=== PATIENT | female | born 1960 | race Hispanic/Latino ===

== ENCOUNTER → 2018-09-16 | Outpatient (CLI) | payer MEDICARE | END | disposition home or self-care (01) | LOC: RAH 14:35 | PROVIDERS: ATTEND Family Medicine | DX: Z12.31 Encounter for screening mammogram for malignant neoplasm of breast (principal) | CPT/HCPCS: 77067 ==

== ENCOUNTER → 2020-05-02 | Outpatient (CLI) | payer MEDICARE | END | disposition home or self-care (01) | LOC: RAH 10:02 | PROVIDERS: ATTEND Family Medicine | DX: R92.2 Inconclusive mammogram (principal); N64.4 Mastodynia; R92.8 Other abnormal and inconclusive findings on diagnostic imaging of breast | CPT/HCPCS: 77066 ==

== ENCOUNTER 2021-10-22 03:46 | Observation (INO) | payer MEDICARE ==
[~2021-10-22] VITALS: Ht 162.6 cm; Wt 92.3 kg
[2021-10-22 04:15] LABS: BASOPHILS % (AUTO) 0.6 % (0.0-5.0); EOSINOPHILS % (AUTO) 1.5 % (0.0-8.0); HEMATOCRIT 51.4 % (36-48); LYMPHOCYTES % (AUTO) 30.6 % (21.0-51.0); MEAN CORPUSCULAR HEMOGLOBIN 30.9 pg (27.0-33.0); MEAN CORPUSCULAR HGB CONC 31.5 g/dL (32.0-36.0); MEAN CORPUSCULAR VOLUME 97.9 fL (79-99); NEUTROPHILS % (AUTO) 58.1 % (40.0-77.0); PLATELET COUNT (AUTO) 185 K/uL (130-400); RED BLOOD CELL COUNT(AUTO) 5.25 MIL/uL (4.00-5.50); RED CELL DISTRIBUTION WIDTH 13.2 % (11.0-15.5); WHITE BLOOD COUNT (AUTO) 8.7 K/uL (4.8-10.8)
[2021-10-22 04:17] LABS: CREATININE 0.8 mg/dL (0.5-1.5); POTASSIUM 3.6 mmol/L (3.5-5.1)
[2021-10-22 04:22] LABS: ALBUMIN 3.8 g/dL (3.5-5.0); BILIRUBIN,TOTAL 0.6 mg/dL (0.2-1.0); TOTAL PROTEIN, SERUM 8.2 g/dL (6.0-8.3)
[2021-10-22] MEDS ORDERED: 0.9%NACL 1000ML 1,000 ML IV ONE (05:30)
[2021-10-22 05:57] LABS: APPEARANCE,URINE Clear (CLEAR); BILIRUBIN,URINE Negative (NEGATIVE); COLOR,URINE Yellow (YELLOW); GLUCOSE, URINE (UA) >=1000 mg/dL (NEGATIVE); KETONES,URINE 15 mg/dL (NEGATIVE); LEUKOCYTE ESTERASE ,URINE Negative (NEGATIVE); NITRATE,URINE Negative (NEGATIVE); OCCULT BLOOD,URINE Negative (NEGATIVE); PH,URINE 5.5 (5.0-8.0); PROTEIN,URINE Negative (NEGATIVE); UROBILINOGEN,URINE 0.2 mg/dL (0.2-1.0)
[2021-10-22] MEDS ORDERED: ONDANSETRON 4MG INJ IV PRN (06:00)
[2021-10-22] MEDS ORDERED: ACETAMINOPHEN 325 MG TAB PO PRN (06:00)
[2021-10-22 06:03] LABS: BACTERIA,URINE None Seen /HPF (None Seen); RBC,URINE None Seen /HPF (0-1); SQUAMOUS EPITHELIAL CELL,UR Few /HPF (0-2); WBC,URINE None Seen /HPF (0-1); YEAST,URINE BUDDING None Seen /HPF (None Seen)
[2021-10-22] MEDS: FAMOTIDINE 20MG TAB PO SCH (08:13)
[2021-10-22] MEDS ORDERED: 0.9%NACL 1000ML 1,000 ML IV SCH (09:30)
[2021-10-22 11:50] VITALS: BP 130/57
[2021-10-22] MEDS ORDERED: OLOP2.5D12 OP (12:30)
[2021-10-22] MEDS ORDERED: FAMO20TA8 PO (12:30)
[2021-10-22] MEDS: 0.9%NACL 1000ML 1,000 ML IV SCH ×2 (12:30→20:41)
[2021-10-22] MEDS ORDERED: EMPA25TA PO (12:30)
[2021-10-22] MEDS ORDERED: LEVE750T10 PO (12:30)
[2021-10-22] MEDS ORDERED: LORA10TA7 PO (12:30)
[2021-10-22] MEDS ORDERED: MULT-1367 PO (12:30)
[2021-10-22] MEDS ORDERED: PARO-66 PO (12:30)
[2021-10-22] MEDS ORDERED: NYST100P2 MC (12:30)
[2021-10-22] MEDS ORDERED: FLUO20CA30 PO (12:30)
[2021-10-22] MEDS ORDERED: PRAV20TA4 PO (12:30)
[2021-10-22] MEDS ORDERED: METF-446 PO (12:30)
[2021-10-22 16:00] VITALS: BP 115/50
[2021-10-22] MEDS ORDERED: NYSTATIN MC PRN (16:00)
[2021-10-22] MEDS ORDERED: NYSTATIN 15 GM POWDER TP PRN (16:30)
[2021-10-22 20:04] VITALS: BP 115/58
[2021-10-22] MEDS ORDERED: NON-FORMULARY MEDICATION 1 EACH (Levetiracetam 750 MG) PO SCH (21:00)
[2021-10-22] MEDS: LEVETIRACETAM 250 MG TABLET PO SCH (22:41)
[2021-10-22 23:18] VITALS: BP 120/58
[2021-10-23 03:15] VITALS: BP 106/51
[2021-10-23 05:05] LABS: BASOPHILS % (AUTO) 0.3 % (0.0-5.0); EOSINOPHILS % (AUTO) 1.5 % (0.0-8.0); LYMPHOCYTES % (AUTO) 28.4 % (21.0-51.0); MEAN CORPUSCULAR HEMOGLOBIN 30.6 pg (27.0-33.0); MEAN CORPUSCULAR HGB CONC 31.3 g/dL (32.0-36.0); MEAN CORPUSCULAR VOLUME 97.9 fL (79-99); MONOCYTES % (AUTO) 7.9 % (3.0-13.0); NEUTROPHILS % (AUTO) 61.7 % (40.0-77.0); PLATELET COUNT (AUTO) 177 K/uL (130-400); WHITE BLOOD COUNT (AUTO) 8.8 K/uL (4.8-10.8)
[2021-10-23 05:18] LABS: CREATININE 0.6 mg/dL (0.5-1.5); MAGNESIUM 2.2 mg/dL (1.80-2.40); PHOSPHORUS 2.5 mg/dL (2.5-4.9); POTASSIUM 3.6 mmol/L (3.5-5.1)
[2021-10-23 05:35] LABS: HEMOGLOBIN A1C 5.9 % (4.0-6.0)
[2021-10-23 07:30] VITALS: BP 128/51
[2021-10-23] MEDS: LEVETIRACETAM 250 MG TABLET PO SCH (08:34)
[2021-10-23] MEDS: FAMOTIDINE 20MG TAB PO SCH (08:34)
[2021-10-23] MEDS: 0.9%NACL 1000ML 1,000 ML IV SCH (10:52)
[2021-10-23 11:30] VITALS: BP 111/59
[2021-10-23 16:00] VITALS: BP 128/59
[2021-10-23] MEDS ORDERED: OLOPATADINE HCL 0.1% 5ML DROPS OU SCH (17:00)
[2021-10-23] MEDS ORDERED: METFORMIN HCL 500 MG TAB.SR.24H PO SCH (17:00)
[2021-10-23] MEDS ORDERED: ATORVASTATIN 20 MG TABLET PO SCH (21:00)
[2021-10-24] MEDS ORDERED: PAROXETINE HCL 20 MG TABLET PO SCH (09:00)
[2021-10-24] MEDS ORDERED: FLUOXETINE HCL 20 MG CAPSULE PO SCH (09:00)
[2021-10-24] MEDS ORDERED: LORATADINE 10 MG TABLET PO SCH (09:00)
== END 2021-10-23 17:25 ==
LOC: EDH 03:46 → EDHIP 05:51 → INTOOBSV 05:51 → 3BH 11:45
PROVIDERS: ADMIT Internal Medicine; ATTEND Internal Medicine
DX: S09.90XA Unspecified injury of head, initial encounter (principal); C71.9 Malignant neoplasm of brain, unspecified; E86.0 Dehydration; E11.9 Type 2 diabetes mellitus without complications; R53.1 Weakness; R53.81 Other malaise; G93.6 Cerebral edema; R29.6 Repeated falls; E78.00 Pure hypercholesterolemia, unspecified; R42 Dizziness and giddiness; F17.210 Nicotine dependence, cigarettes, uncomplicated; Z85.841 Personal history of malignant neoplasm of brain; Z90.710 Acquired absence of both cervix and uterus; Z91.81 History of falling; Z79.84 Long term (current) use of oral hypoglycemic drugs; Z99.3 Dependence on wheelchair; W18.30XA Fall on same level, unspecified, initial encounter; Y92.89 Other specified places as the place of occurrence of the external cause; Y93.89 Activity, other specified; Y99.8 Other external cause status
CPT/HCPCS: 36415 ×2; 70450; 71250; 72125; 74176; 80048; 80053; 81001; 82550; 82948 ×3; 83036; 83605; 83735; 84100; 84484; 85025 ×2; 93005; 96360; 96361 ×2; 97039 ×2; 97161; 99285; G0378 ×2; J7030 ×2